=== PATIENT | male | born 1995 | race Caucasian/White ===

== ENCOUNTER 2020-04-05 00:35 | Emergency (ER) | payer BC ==
[2020-04-05] MEDS ORDERED: Lidocaine/EPINEPHrine/Tetracaine Soln 1 ML TOP ONE (00:54)
[2020-04-05] MEDS ORDERED: Lidocaine/EPINEPHrine/Tetracaine Soln 1 ML ONE ×2 (00:56→01:15)
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
[2020-04-05] MEDS ORDERED: Lidocaine 1% 10 ML MDV INJECT ONE (01:22)
== END 2020-04-05 01:53 | disposition home or self-care (01) ==
LOC: EDBD 00:35 → JD.ED 00:35
DX: S01.511A Laceration without foreign body of lip, initial encounter (principal); Y04.2XXA Assault by strike against or bumped into by another person, initial encounter
CPT/HCPCS: 12011; 99282; J2001